=== PATIENT | male | born 1980 | race Hispanic/Latino ===

== ENCOUNTER 2019-02-02 11:02 | Outpatient (CLI) | payer BC ==
--- NOTE | 2019-02-02 12:31 | RAD ---
RIGHT FOOT 3 VIEWS: HISTORY: Right foot pain. FINDINGS: There is an 8-10 mm enthesophyte from the plantar calcaneus. Tarsals, metatarsals, and phalanges oth erwise unremarkable. MTP joints unremarkable. No fracture or acute abnormality. IMPRESSION: Small spur from the plantar calcaneus. No other abnormal findings. POS: OFF
== END 2019-02-02 11:03 | disposition home or self-care (01) ==
LOC: BICRAD 11:02
PROVIDERS: ATTEND Family Medicine
DX: M79.671 Pain in right foot (principal); M77.31 Calcaneal spur, right foot

== ENCOUNTER 2019-12-14 10:02 | Outpatient (CLI) | payer BC ==
--- NOTE | 2019-12-14 11:09 | RAD ---
LEFT KNEE RADIOGRAPHS 3 VIEWS: DATE: 12/14/2019. PROVIDED CLINICAL HISTORY: Left knee pain. FINDINGS: No evidence for a fracture or other acute osseous abnormality. Alignment appears anatomic. Joint sp aces appear preserved. No evidence for significant knee joint capsular distention. IMPRESSION: No evidence for an acute osseous abnormality or significant arthropathy. POS: JAN
== END 2019-12-14 10:03 | disposition home or self-care (01) ==
LOC: BICRAD 10:02
PROVIDERS: ATTEND Family Medicine
DX: M25.562 Pain in left knee (principal)

== ENCOUNTER 2019-12-25 13:46 | Outpatient (CLI) | payer BC ==
--- NOTE | 2019-12-25 15:48 | MRI ---
MRI LEFT KNEE 12/25/19 PROVIDED CLINICAL HISTORY: Left knee pain. FINDINGS: The anterior cruciate ligament, posterior cruciate ligament, medial collateral ligament and lateral c ollateral ligamentous complex demonstrate an intact MR appearance, as does the extensor mechanism. There is a small partial thickness radial tear involving the body of the lateral meniscus. The medial meniscus demonstrates no definite evidence for tear. There is increased signal intensity on fluid se nsitive sequences that is not definitely grade III in nature involving the posterior root. No focal a rticular cartilage defect is apparent. There is a physiologic amount of fluid within the knee joint. No focal concerning regional marrow or muscular signal abnormality apparent. IMPRESSION: Findings compatible with partial thickness radial tear involving the body of the lateral meniscus. POS: JAN
== END 2019-12-25 13:47 | disposition home or self-care (01) ==
LOC: SCSMRI 13:46
PROVIDERS: ATTEND Orthopaedic Surgery
DX: M23.92 Unspecified internal derangement of left knee (principal)